=== PATIENT | male | born 1935 | race Caucasian/White ===

== ENCOUNTER → 2016-03-12 | Outpatient (CLI) | payer OTHER, MEDICARE ==
--- NOTE | 2016-03-12 15:47 | DX ---
Chest, PA and Lateral. 12 March 2016 History: Shortness of breath. Pacemaker placement. Comparisons: None. Findings: Cardiac pacer is seen with two wires. The wires appear intact but there is a small defect i n the insulation between the fourth and fifth ribs posteriorly on the left. No evidence for pneumotho rax. Heart size is within normal limits. Dextroscoliotic curvature. Vascular calcification is seen in the aorta indicating atherosclerotic disease. Degenerative change is seen in thoracic spine. Impression: Small defect in the insulation of both cardiac leads as above. Results called to the office of Dr. Derian Fraire.
== END ==
LOC: BMCIMAGING 14:44
PROVIDERS: ATTEND Internal Medicine Cardiovascular Disease
DX: T82.518A Breakdown (mechanical) of other cardiac and vascular devices and implants, initial encounter (principal); R06.02 Shortness of breath; I25.10 Atherosclerotic heart disease of native coronary artery without angina pectoris

== ENCOUNTER → 2016-06-24 | Outpatient (CLI) | payer OTHER, MEDICARE | LOC: BHFA 11:00 | PROVIDERS: ATTEND Internal Medicine Cardiovascular Disease | DX: I48.91 Unspecified atrial fibrillation (principal); I49.3 Ventricular premature depolarization ==

== ENCOUNTER → 2016-11-23 | Outpatient (CLI) | payer OTHER, MEDICARE | LOC: FIMAGING 14:06 | PROVIDERS: ATTEND Internal Medicine | DX: R10.9 Unspecified abdominal pain (principal); N28.1 Cyst of kidney, acquired ==

== ENCOUNTER → 2016-11-25 | Outpatient (CLI) | payer OTHER, MEDICARE | LOC: FIMAGING 10:39 | PROVIDERS: ATTEND Internal Medicine | DX: M51.36 Other intervertebral disc degeneration, lumbar region (principal); M48.56XA Collapsed vertebra, not elsewhere classified, lumbar region, initial encounter for fracture ==

== ENCOUNTER → 2017-07-30 | Outpatient (CLI) | payer OTHER, MEDICARE | LOC: BHFA 15:30 | PROVIDERS: ATTEND Internal Medicine Cardiovascular Disease | DX: I48.91 Unspecified atrial fibrillation (principal) ==

== ENCOUNTER → 2017-10-20 | Outpatient (CLI) | payer OTHER, MEDICARE | LOC: BMCIMAGING 16:09 | PROVIDERS: ATTEND Internal Medicine | DX: R06.09 Other forms of dyspnea (principal); I27.20 Pulmonary hypertension, unspecified; Z95.0 Presence of cardiac pacemaker ==